=== PATIENT | male | born 1960 | race Caucasian/White ===

== ENCOUNTER 2019-07-29 09:05 | Emergency (ER) | payer OTHER, SELFPAY ==
--- NOTE | 2019-07-29 09:24 | ED_ITS ---
Entered by Conner Brunson, acting as scribe for HPI - General Adult General: Chief complaint: General Medical Stated complaint: HIGH BP SOB Time Seen by Provider: 07/29/19 09:30 History of Present Illness: HPI narrative: 58 yo male presents with hy pertension and shortness of breath. Pt states that last night he started having chills and nausea. Pt states that he went to [facility], they sent him here. Pt states that his face is tingling. Pt states that he has had a cough for a week. MD complaint: hypertension and shortness of breath. Associated symptoms: Reports diaphoresis, dyspnea and nausea; Deny chest pain, malaise, rash or vomiting Review of Systems Const: Reports: chills, fatigue and diaphoresis; Denies: fever, body aches, change in appetite or malaise ENMT: Denies: throat pain, ear pain, nasal discharge or nasal congestion Card: Denies: chest pain, edema, shortness of breath on exertion or shortness of breath when lying down Resp: Reports: shortness of breath and non-productive cough; Denies: productive cough GI: Reports: nausea; Denies: abdominal pain, vomiting, vomiting blood, coffee grounds in vomit, diarrhea, constipation, bloating, blood in stool or black tarry stool : Denies: flank pain, painful urination, urinary frequency or urinary urgency Skin/Breast: Denies: rash or itching PFSH ED PFSH: Statuses (acute, chronic, etc) shown below reflect problem list status as previously entered and may not be historically accurate Medical History Diabetes (Acute) Prostate disease (Acute) Social History Smoking and tobacco status: never smoked Physical Exam Const: COMMON NORMALS: no apparent distress GENERAL APPEARANCE: cooperative and comfortable ORIENTATION/CONSCIOUSNESS: Yes awake, Yes oriented to person, Yes oriented to place and Yes oriented to time HENMT: COMMON NORMALS: normocephalic, head/scalp atraumatic, hearing grossly normal bilaterally, external ears normal, EAC's normal, TM's normal bilaterally, nasal mucous membranes and turbinates normal, moist oral mucous membranes and oropharynx normal HEAD & SCALP: normocephalic and atraumatic NOSE: nasal mucous membranes and turbinates normal EXTERNAL EAR: Yes external ears normal EXTERNAL AUDITORY CANAL: EAC's normal TYMPANIC MEMBRANE: TM's normal bilaterally Eye: COMMON NORMALS: PERRL, EOMs intact bilaterally, conjunctivae normal and no scleral icterus CONJUNCTIVA: Yes conjunctivae normal PUPIL: Yes PERRL Neck/C-Spine: COMMON NORMALS: full ROM, no lymphadenopathy, supple and no JVD Lymph: LYMPHATIC: no lymphadenopathy noted and no lymphedema noted Resp: COMMON NORMALS: normal respiratory effort, no retractions, no use of accessory muscles and clear to auscultation bilaterally AUSCULTATION: clear to auscultation bilaterally Cardio: COMMON NORMALS: no JVD, regular rate, regular rhythm and no murmurs RATE: regular rate RHYTHM: regular rhythm GI: COMMON NORMALS: soft to palpation and no hepatosplenomegaly AUSCULTA TION: Yes normoactive bowel sounds PALPATION: Yes soft, No tender, No guarding and Yes no hepatosplenomegaly Extremity: COMMON NORMALS: normal to inspection, normal capillary refill, no c lubbing, cyanosis or edema, no calf tenderness and no pedal edema Neuro: SENSORIUM/ORIENTATION: Yes oriented to person, Yes oriented to place and Yes oriented to time Skin: COMMON NORMALS: no rashes or lesions noted GENERAL SKIN EXAM: no rashes or lesions noted Course ED course: Patient initially was hyperventilating when he came in. He does indeed have significant blood pressure elevation and a history of diabetes mellitus. On his first vital signs O2 sat is listed as 24. 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 His blood pressure did improve while he was here his symptoms have completely resolved since, coming to the emergency room. We will add lisinopril 10 mg daily and have him follow-up with his primary care doctor in the next few days. Turn if has any worsening or changes symptoms Vital Signs: Vital signs: Vital Signs Temperature 97.9 F 07/29/19 09:30 Pulse Rate 90 07/29/19 11:17 Respiratory Rate 20 H 07/29/19 11:17 Blood Pressure 170/99 07/29/19 11:17 Pulse Oximetry 97 07/29/19 11:17 [facility] - General Adult Lab Data: Labs: Lab Results 07/29/19 07/29/19 07/29/19 Range/Units 09:40 09:40 09:40 WBC 8.5 (4.0-10.0) 10^3/ uL RBC 5.20 (4.1-5.3) 10^6/u L Hgb 15.4 (11.7-16.6) g/dL Hct 45.3 (42.0-52.0) % MCV 87.1 (80-94) fL MCH 29.6 (28.0-34.0) pg MCHC 34.0 (30.0-36.0) g/dL RDW 13.2 (12.1-15.1) % Plt Count 244 (130-400) 10^3/c mm MPV 9.8 (7.4-10.4) fL Neut % (Auto) 60.0 % Lymph % (Auto) 29.0 % [place] % (Auto) 9.2 % Eos % (Auto) 0.8 % Baso % (Auto) 0.4 % Neut # (Auto) 5.1 (1.8-7.7) 10^3/u L Lymph # (Auto) 2.5 (0.8-4.8) 10^3/u L [place] # (Auto) 0.8 (0.2-0.9) 10^3/u L Eos # (Auto) 0.1 (0.0-0.8) 10^3/u L Baso # (Auto) 0.0 (0.0-0.1) 10^3/u L Nucleated RBC % (a uto) 0 % Nucleated RBCs # 0.0 /100WBC Specimen Type Sample Site ABG pH (7.35-7.45) ABG pCO2 (35-45) mmHg ABG pO2 (80.0-100.0) mmH g ABG HCO3 (22-26) mmol/L ABG O2 Saturation ABG Base Excess (-2.0-2.0) mmol/ L Vern Test A-a O2 Gradient (5-10) mmHg Hematocrit (42-52) % Hgb O2 Saturation (95-100) % Carboxyhemoglobin (0.4-20.1) %THgb Methemoglobin (0.4-1.5) % Total Hemoglobin (14-18) g/dL Ionized Calcium (1.1-1.4) mmol/L O2 Delivery Device FiO2 % Direct Customer Service Representative ID Sodium 138 (136-145) mmol/L Potassium 3.7 (3.5-5.1) mmol/L Chloride 97 L (98-107) mmol/L Carbon Dioxide 24 (22-29) mmol/L Anion Gap 20.7 H (5-19) BUN 16 (6-20) mg/dL Creatinine 1.1 (0.7-1.2) mg/dL GFR Calculation 68.5 L (90-130) mL/min Glucose 174 H (74-109) mg/dL Calcium 9.9 (8.5-10.5) mg/dL Total Bilirubin 0.4 (0.15-1.2) mg/dL AST 24 (0-40) U/L ALT 42 H (0-41) U/L Alkaline Phosphata se 87 (40-130) IU/L Troponin T Baselin e 15 (0-15) ng/mL Total Protein 7.9 (6.6-8.7) g/dL Albumin 4.9 (3.5-5.2) g/dL Globulin 3.0 (1.3-4.6) g/dL Urine Color (Yellow) Urine Appearance (CLEAR) Urine pH (5-7) Ur Specific Gravit y (1.005-1.030) Urine Protein (Negative) Urine Glucose (UA) (Normal) Urine Ketones (Negative) Urine Occult Blood (Negative) Urine Nitrate (Negative) Urine Bilirubin (NEGATIVE) Prot Sulfosalicyli c Acd Urine Urobilinogen (Negative) mg/dL Ur Leukocyte Priti ase (Negative) Influenza Type A A g (Negative) POC Influenza B Ag (Negative) 07/29/19 07/29/19 07/29/19 Range/Units 09:49 09:55 10:02 WBC (4.0-10.0) 10^3/ uL RBC (4.1-5.3) 10^6/u L Hgb (11.7-16.6) g/dL Hct (42.0-52.0) % MCV (80-94) fL MCH (28.0-34.0) pg MCHC (30.0-36.0) g/dL RDW (12.1-15.1) % Plt Count (130-400) 10^3/c mm MPV (7.4-10.4) fL Neut % (Auto) % Lymph % (Auto) % [place] % (Auto) % Eos % (Auto) % Baso % (Auto) % Neut # (Auto) (1.8-7.7) 10^3/u L Lymph # (Auto) (0.8-4.8) 10^3/u L [place] # (Auto) (0.2-0.9) 10^3/u L Eos # (Auto) (0.0-0.8) 10^3/u L Baso # (Auto) (0.0-0.1) 10^3/u L Nucleated RBC % (a uto) % Nucleated RBCs # /100WBC Specimen Type Arterial Sample Site Radial, left ABG pH 7.59 H* (7.35-7.45) ABG pCO2 21.7 L (35-45) mmHg ABG pO2 90.2 (80.0-100.0) mmH g ABG HCO3 20.8 L (22-26) mmol/L ABG O2 Saturation 98.6 ABG Base Excess 1.3 (-2.0-2.0) mmol/ L Vern Test Pos A-a O2 Gradient 28.3 H (5-10) mmHg Hematocrit 46.5 (42-52) % Hgb O2 Saturation 97.5 (95-100) % Carboxyhemoglobin 0.8 (0.4-20.1) %THgb Methemoglobin 0.3 L (0.4-1.5) % Total Hemoglobin 15.2 (14-18) g/dL Ionized Calcium 1.1 (1.1-1.4) mmol/L O2 Delivery Device Room air FiO2 21.0 % Direct Customer Service Representative ID glc Sodium 140.0 (136-145) mmol/L Potassium 3.4 L (3.5-5.1) mmol/L Chloride (98-107) mmol/L Carbon Dioxide (22-29) mmol/L Anion Gap (5-19) BUN (6-20) mg/dL Creatinine (0.7-1.2) mg/dL GFR Calculation (90-130) mL/min Glucose 160.0 H (74-109) mg/dL Calcium (8.5-10.5) mg/dL Total Bilirubin (0.15-1.2) mg/dL AST (0-40) U/L ALT (0-41) U/L Alkaline Phosphata se (40-130) IU/L Troponin T Baselin e (0-15) ng/mL Total Protein (6.6-8.7) g/dL Albumin (3.5-5.2) g/dL Globulin (1.3-4.6) g/dL Urine Color Yellow (Yellow) Urine Appearance Clear (CLEAR) Urine pH 8.5 H (5-7) Ur Specific Gravit y 1.010 (1.005-1.030) Urine Protein Neg (Negative) Urine Glucose (UA) Trace H (Normal) Urine Ketones Negative (Negative) Urine Occult Blood Neg (Negative) Urine Nitrate Negative (Negative) Urine Bilirubin Neg (NEGATIVE) Prot Sulfosalicyli c Acd Negative Urine Urobilinogen Norm (Negative) mg/dL Ur Leukocyte Priti ase Negative (Negative) Influenza Type A A g Negative (Negative) POC Influenza B Ag Negative (Negative) Discharge Plan Discharge Patient Disposition: Home, Self-Care Clinical Impression: Acute hyperventilation, Diabetes, Benign essential HTN Condition: Stable Prescriptions: New lisinopril 10 mg tablet 10 mg PO DAILY Qty: 30 RF: 0 No Action trazodone 50 mg tablet 50 mg PO BEDTIME PRN (Reason: Insomnia) RF: 0 metformin 500 mg tablet extended release 24 hr 1,000 mg PO BID RF: 0 finasteride 5 mg tablet 5 mg PO DAILY RF: 0 Discharge Orders: Discharge Order (Routine); Ordered 07/29/19 Ordered By: Cory Patel Referrals: Liam Mendoza DO [Family Provider] - Discharge Diet: Usual diet Discharge Activity: Increase activity as tolerated Activity Restrictions/Additional Instructions: Start antihypertensive as above. Follow-up with Dr. Mendoza tomorrow as scheduled. If you have any further problems return to the emergency room. 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
[2019-07-29 09:30] VITALS: BP 174/117; PULSE 109; RESP 22; TEMP 36.6; O2SAT 24; BMI 31.1
--- NOTE | 2019-07-29 09:36 | XRR_ITS ---
PROCEDURE INFORMATION: Exam: XR Chest, 1 View Exam date and time: 07/29/2019 9:37 AM Age: 58 years old Clinical indication: Cough TECHNIQUE: Imaging protocol: XR of the chest Views: 1 view. COMPARISON: No relevant prior studies available. FINDINGS: Lungs: COPD and interstitial prominence. Pleural space: No pleural effusion. Heart/Mediastinum: Epicardial fat accentuates the cardiac silhouette. Bones/joints: Degenerative change. XR/XR chest 1V portable [id number] IMPRESSION: COPD and interstitial prominence.
--- NOTE | 2019-07-29 09:36 | ECG_ITS ---
Measurements Intervals [place] Rate: 76 P: 5 PA: 152 QRS: -3 QRSD: 82 T: -4 QT: 383 QTc: 431 SINUS RHYTHM VOLTAGE CRITERIA FOR LVH [MEETS CRITERIA IN ONE OF: R(aVL), S(V1), R(V5), R(V (V5/V6)+S(V1)] No previous ECG available for comparison Electronically Signed On 07-29-2019 20:59:47 EXECUTIVE SALES MANAGER by Herman Joyner M.D. [email or web address]
[2019-07-29 09:45] VITALS: O2SAT 100
[2019-07-29] MEDS: sodium chloride 0.9% 1,000 ML 999 ML IV (09:52)
[2019-07-29 09:58] LABS: Basophils % 0.4 %; Eosinophils # 0.1 10^3/uL (0.0-0.8); Eosinophils % 0.8 %; Hematocrit 45.3 % (42.0-52.0); Hemoglobin 15.4 g/dL (11.7-16.6); Lymphocytes # 2.5 10^3/uL (0.8-4.8); Mean Corpuscular Hemoglobin 29.6 pg (28.0-34.0); Mean Corpuscular Volume 87.1 fL (80-94); Mean Platelet Volume 9.8 fL (7.4-10.4); Monocytes # 0.8 10^3/uL (0.2-0.9); Monocytes % 9.2 %; Neutrophils # 5.1 10^3/uL (1.8-7.7); Nucleated Red Blood Cells % 0 %; Platelet Count 244 10^3/cmm (130-400); Red Cell Distribution Width 13.2 % (12.1-15.1); White Blood Count 8.5 10^3/uL (4.0-10.0)
[2019-07-29 10:00] LABS: Add Urine Microscopic? NO
[2019-07-29 10:10] LABS: Alanine Aminotransferase 42 U/L (0-41); Albumin Level 4.9 g/dL (3.5-5.2); Alkaline Phosphatase 87 IU/L (40-130); Anion Gap 20.7 (5-19); Aspartate Amino Transferase 24 U/L (0-40); Blood Urea Nitrogen 16 mg/dL (6-20); Calcium 9.9 mg/dL (8.5-10.5); Carbon Dioxide 24 mmol/L (22-29); Chloride 97 mmol/L (98-107); Glomerular Filtration Rate 68.5 mL/min (90-130); Glucose 174 mg/dL (74-109); Potassium 3.7 mmol/L (3.5-5.1); Sodium 138 mmol/L (136-145); Total Bilirubin 0.4 mg/dL (0.15-1.2); Total Protein 7.9 g/dL (6.6-8.7)
[2019-07-29 10:10] LABS: Bilirubin Urine Neg (NEGATIVE); Blood Urine Neg (Negative); Glucose Urine UA Trace (Normal); Ketones Urine Negative (Negative); Leukocyte Esterase Urine Negative (Negative); Nitrate Urine Negative (Negative); Protein Urine Neg (Negative); Sulfosalicylic Acid Urine Negative; Urine Appearance Clear (CLEAR); Urine Color Yellow (Yellow); Urobilinogen Urine Norm (Negative); pH Urine 8.5 (5-7)
[2019-07-29 10:13] LABS: ABG PCO2 21.7 mmHg (35-45); Alveolar-Arterial Oxygen Gradi 28.3 mmHg (5-10); Arterial Blood Gas Hematocrit 46.5 % (42-52); Base Excess ABG 1.3 mmol/L (-2.0-2.0); Blood Gas Allen Test Pos; Blood Gas Operator Identificat glc; Blood Gas Sample Site Radial, left; Blood Gas Sample Type Arterial; Carboxyhemoglobin 0.8 %THgb (0.4-20.1); HCO3 ABG 20.8 mmol/L (22-26); HGB O2 Sat 97.5 % (95-100); Ionized Calcium Level - ABG 1.1 mmol/L (1.1-1.4); Methemoglobin 0.3 % (0.4-1.5); Oxygen Device ROOM AIR; Oxygen Saturation ABG 98.6; PO2 ABG 90.2 mmHg (80.0-100.0); Potassium Level - ABG 3.4 mmol/L (3.5-5.0); Total Hemoglobin 15.2 g/dL (14-18)
[2019-07-29 10:14] LABS: ABG PH Result 7.59 (7.35-7.45)
[2019-07-29 10:15] LABS: Troponin(5th) Baseline 15 ng/mL (0-15)
[2019-07-29 10:25] LABS: Influenza A by IFA Negative (Negative); Influenza B by IFA Negative (Negative)
[2019-07-29 10:30] VITALS: BP 169/97; PULSE 66; RESP 19; O2SAT 99
[2019-07-29 11:17] VITALS: BP 170/99; PULSE 90; RESP 20; O2SAT 97
== END 2019-07-29 11:19 | disposition home or self-care (01) ==
PROVIDERS: Emergency Provider Family Medicine; Family Provider Internal Medicine
DX: I10 Essential (primary) hypertension (principal); R06.4 Hyperventilation; E11.9 Type 2 diabetes mellitus without complications; Z79.84 Long term (current) use of oral hypoglycemic drugs
CPT/HCPCS: 36600; 71045; 80051; 80053; 81003; 82810; 83986; 84484; 85025; 87804; 93005; 96360; 99283; A9270; J7030

== ENCOUNTER → 2022-07-21 10:11 | Outpatient (BNVA) | payer OTHER, SELFPAY | PROVIDERS: Visit Provider Emergency Medicine | DX: S99.919A Unspecified injury of unspecified ankle, initial encounter (principal); W18.40XA Slipping, tripping and stumbling without falling, unspecified, initial encounter; M79.89 Other specified soft tissue disorders | CPT/HCPCS: 73610 ==

== ENCOUNTER → 2022-09-19 09:55 | Outpatient (BNVA) | payer OTHER, SELFPAY | PROVIDERS: PCP Family Medicine; Visit Provider Family Medicine | DX: E11.9 Type 2 diabetes mellitus without complications (principal); R25.1 Tremor, unspecified | CPT/HCPCS: 82962 ==

== ENCOUNTER → 2023-10-26 09:58 | Outpatient (BNVA) | payer OTHER, SELFPAY | PROVIDERS: PCP Family Medicine; Visit Provider Nurse Practitioner Family | DX: R39.9 Unspecified symptoms and signs involving the genitourinary system (principal); E11.9 Type 2 diabetes mellitus without complications | CPT/HCPCS: 81000; 82962 ==

== ENCOUNTER → 2023-11-01 10:23 | Outpatient (BNVA) | payer OTHER, SELFPAY | PROVIDERS: PCP Family Medicine; Visit Provider Family Medicine | DX: E11.9 Type 2 diabetes mellitus without complications (principal); I10 Essential (primary) hypertension; Z12.5 Encounter for screening for malignant neoplasm of prostate; E83.42 Hypomagnesemia | CPT/HCPCS: 80048; 80053; 80061; 81003; 82043; 82306; 82607; 82746; 83036; 83735; 84443; 85025; G0103 ==

== ENCOUNTER 2023-11-02 09:15 | Outpatient (CLI) | payer OTHER, SELFPAY ==
--- NOTE | 2023-11-02 09:22 | XR_ITS ---
WS: [id number] Chest 2 views, 11/02/2023 Clinical Data: Chest congestion Comparison: Portable chest, 07/29/2019 Findings: No nodules, masses or effusions are seen. The heart is normal. The pulmonary vascularity is not increased. No pneumonia or pneumothorax is seen. The diaphragms are flattened. The aortic arch a nd descending thoracic aorta show minimal calcification and tortuosity. XR/XR chest 2V* [id number] Impression: Atherosclerosis and hyperinflation.
== END 2023-11-02 09:16 | disposition home or self-care (01) ==
LOC: LAB 09:19
PROVIDERS: PCP Family Medicine; Visit Provider Family Medicine
DX: R09.89 Other specified symptoms and signs involving the circulatory and respiratory systems (principal); I70.0 Atherosclerosis of aorta
CPT/HCPCS: 71046

== ENCOUNTER 2024-01-01 00:43 | Emergency (ER) | payer OTHER, SELFPAY ==
[2024-01-01 00:46] VITALS: BP 142/93; PULSE 76; RESP 18; TEMP 36.6; O2SAT 100; BMI 29.8
[2024-01-01 00:51] VITALS: BP 142/93; PULSE 82; RESP 18; O2SAT 100
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
--- NOTE | 2024-01-01 01:02 | XRR_ITS ---
PROCEDURE INFORMATION: Exam: XR Chest Exam date and time: 01/01/2024 1:11 AM Age: 63 years old Clinical indication: Shortness of breath; Patient HX: C/O SOB. TECHNIQUE: Imaging protocol: Radiologic exam of the chest. Views: 1 view. COMPARISON: CR XR chest 2V* [id number] 11/02/2023 9:30 AM FINDINGS: Lungs: No consolidation. Pleural spaces: Unremarkable. No pleural effusion. No pneumothorax. Heart/Mediastinum: No cardiomegaly. Bones/joints: No acute fracture. XR/XR chest 1V portable [id number] IMPRESSION: No acute findings.
[2024-01-01] MEDS: iohexol 350 mg/mL 500 mL Btl (per mL) IV (01:24)
[2024-01-01 02:03] LABS: Basophils % 0.3 %; Eosinophils % 0.3 %; Hematocrit 40.3 % (37-53); Lymphocytes # 1.2 10^3/uL (0.8-4.8); Lymphocytes % 16.9 %; Mean Corpuscular Hemoglobin 32.9 pg (27-33); Mean Corpuscular Volume 96.6 fl (82-101); Mean Platelet Volume 10.3 fL (7.4-10.4); Monocytes # 0.4 10^3/uL (0.2-0.9); Monocytes % 5.6 %; Neutrophils # 5.63 10^3/uL (1.8-7.7); Neutrophils % 76.5 %; Nucleated Red Blood Cells % 0 %; Platelet Count 129 10^3/cmm (157-399); Red Blood Count 4.17 10^6/uL (3.85-5.65); Red Cell Distribution Width 13.5 % (12.1-15.1); White Blood Count 7.35 10^3/uL (3.29-11.43)
[2024-01-01 02:23] LABS: Alanine Aminotransferase 56 U/L (0-41); Alkaline Phosphatase 73 U/L (40-130); Aspartate Amino Transferase 81 U/L (0-40); Blood Urea Nitrogen 14 mg/dL (8-23); Calcium 8.8 mg/dL (8.5-10.5); Carbon Dioxide 19 mmol/L (22-29); Chloride 100 mmol/L (98-107); Creatinine Clr Calc Pharmacy 114.1003; Globulin 2.8 g/dL (1.3-4.6); Glomerular Filtration Rate 97.3 mL/min (90-130); Glucose 223 mg/dL (65-115); Osmolality Calculated 287 mOsm/kg (285-295); Sodium 135 mmol/L (136-145); Total Bilirubin 0.5 mg/dL (0.15-1.2); Total Protein 6.8 g/dL (6.6-8.7)
[2024-01-01 02:24] VITALS: BP 123/85; PULSE 75; RESP 18; O2SAT 100
[2024-01-01] MEDS: ondansetron 2 mg/ML SDV 2 mL 4 MG IVP (02:25)
[2024-01-01 02:26] VITALS: RESP 16; O2SAT 100
[2024-01-01] MEDS: morphine 4 mg/mL SDV 1 mL IVP (02:26)
[2024-01-01 02:51] LABS: Add Urine Culture? No; Add Urine Microscopic? YES; Bacteria Urine TRACE /hpf; Bilirubin Urine Neg (Negative); Blood Urine Neg (Negative); Glucose Urine UA 1+ (Normal); Ketones Urine 1+ (Negative); Leukocyte Esterase Urine Negative (Negative); Mucus Urine 1+ /hpf; Nitrate Urine Negative (Negative); Protein Urine 1+ (Negative); Specific Gravity, Urine 1.005 (1.005-1.030); Urine Appearance Clear (CLEAR); Urine Color Yellow (Yellow); Urobilinogen Urine Neg (Negative); pH Urine 5 (5-7)
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
[2024-01-01 03:14] VITALS: BP 135/84; PULSE 80; RESP 16; O2SAT 100
[2024-01-01 03:29] VITALS: RESP 16
[2024-01-01] MEDS: oxyCODONE-APAP 5-325 mg Tablet 2 TAB PO (03:29)
== END 2024-01-01 03:38 | disposition home or self-care (01) ==
PROVIDERS: Emergency Provider Emergency Medicine; PCP Family Medicine
DX: S32.028A Other fracture of second lumbar vertebra, initial encounter for closed fracture (principal); S32.038A Other fracture of third lumbar vertebra, initial encounter for closed fracture; S32.048A Other fracture of fourth lumbar vertebra, initial encounter for closed fracture; S32.058A Other fracture of fifth lumbar vertebra, initial encounter for closed fracture; S22.42XA Multiple fractures of ribs, left side, initial encounter for closed fracture; E11.9 Type 2 diabetes mellitus without complications; W18.39XA Other fall on same level, initial encounter; Y92.821 Forest as the place of occurrence of the external cause
CPT/HCPCS: 71045; 74177; 80053; 81001; 85025; 96374; 96375; 99285; J2270; J2405; Q9967

== ENCOUNTER 2024-10-04 09:03 | Emergency (ER) | payer OTHER, SELFPAY ==
[2024-10-04] VITALS (19 sets, daily range): BP systolic 113–180; BP diastolic 78–121; PULSE 105–142; RESP 24–43; TEMP 36.3; O2SAT 88–99; BMI 31.1
--- NOTE | 2024-10-04 09:28 | W.ED.AMS ---
HPI - Altered Mental Status General: Chief Complaint: Altered Mental Status Stated Complaint: gen illness - ams Time Seen by Provider: 10/04/24 09:07 History of Present Illness: Patient is a 63-year-old male who presents to the ER today via EMS for altered mental status and not doing well since this a.m. Patient's daughter is in the room with him and reports that yesterday they went to visit her mother, his in [place] who is in the hospital for liver failure and on the way there he was shaking and so he took a couple shots of alcohol. Patient has a significant past medical history of alcohol abuse and if he does not drink at least every 12 hours he starts to have the shakes and withdrawal. She reports he took a couple shots on the way there and then when they got home he finished a sleeve which would equal approximately 20 shots for the day. Patient has not had any alcohol since last night. Patient reports she got up this morning and noticed that there was feces down the hallway at home. She found her father in his room trying to put a towel on his legs thinking they were pants. She reports he was completely out of his mind and was shaking severely so she called EMS. Patient does not give much medical history due to the altered mental status but he is oriented to name. He appears to have a history of hypertension in addition to alcohol abuse and type 2 diabetes. Patient's daughter also reports he does not take his medications like he supposed to. The only diabetic med she knows he is on is metformin however she admits he does not take it regularly. He also does not eat regularly and reports they have tried to get him to eat but he just will not eat. Yesterday she does not recall him eating. She reports he does have an appointment to establish care with a PCP in the area and may but has not been seen by doctor in quite some time. Patient declines any chest pain or shortness of breath however does not give many answers to questions. Onset (ago): hour(s) Associated symptoms: Reports delusions (thought a towel was his pants; defecated in hallway at home) Related Data Home Medications ?Medication ?Instructions ?Recorded ?Confirmed No Known Home Medications 10/04/24 10/04/24 Allergies Allergy/AdvReac Type Severity Reaction Status Date / Time No Known Allergies Allergy Verified 04/11/25 09:22 Review of Systems General: Reports: Other (altered, daughter answering most questions) Const: Reports: change in appetite and other (shaking) Card: Denies: chest pain, palpitations, edema or syncope Resp: Denies: dyspnea, wheezing or chest congestion GI: Reports: diarrhea; Denies: abdominal pain, nausea, vomiting or heartburn : Denies: dysuria Musc: Denies: back pain, extremity pain or extremity swelling Skin/Breast: Denies: rash Neuro: Reports: other (severe shaking; confusion); Denies: headache(s) Psych: Reports: other (long hx of alcohol abuse) [facility] ED PFSH: Medical History (Updated 10/04/24 @ 13:59 by Macey Alejo MD) Prostate disease Diabetes Family History Other Cancer Social History Smoking and tobacco/nicotine status: never used tobacco/nicotine Second hand smoke exposure: No Alcohol intake: never Substance/Drug Use: never Physical Exam Const: GENERAL APPEARANCE: disheveled; not well kempt (unkempt) OTHER: shaking and unable to lay still HENMT: COMMON NORMALS: normocephalic, atraumatic, Normal external nose present and dentition normal HEAD & SCALP: normocephalic and atraumatic NOSE: Normal external nose present OTHER: post seizure pt is noted to have a small tongue laceration to the L side of the anterior tongue; bleeding controlled. Eye: COMMON NORMALS: conjunctivae normal CONJUNCTIVA: Yes conjunctivae normal Neck/C-Spine: COMMON NORMALS: full ROM and no lymphadenopathy Lymph: LYMPHATIC: no lymphadenopathy noted Chest: CHEST: Yes Ecchymosis present (R lateral chest; appears old) Resp: COMMON NORMALS: normal respiratory effort, No retractions and clear to auscultation bilaterally AUSCULTATION: clear to auscultation bilaterally Cardio: COMMON NORMALS: regular rhythm and No murmurs present (Cardio); negative for regular rate (tachycardic) RATE: abnormal rate (tachycardic) RHYTHM: regular rhythm GI: COMMON NORMALS: Normal to inspection, nondistended, normoactive bowel sounds present, Soft to palpation and non-tender PALPATION: Yes Soft to palpation OTHER: min Back/Pelvis: GENERAL BACK: No ecchymosis Extremity: COMMON NORMALS: normal to inspection, full ROM and no clubbing, cyanosis or edema Neuro: SPEECH: abnormal speech OTHER: pt shaking and difficult to understand due to the intense shaking; did follow commands prior to seizure in the ER Psych: APPEARANCE: No well kempt (unkempt) THOUGHT CONTENT: Yes delusions (thought a towel was his pants; defecated in hallway at home) Skin: NARRATIVE SKIN EXAM: other than bruise noted above; no rashes Course ED course: Patient presented to the ER via EMS for altered mental status which daughter found him this morning much different than his baseline. En route he was given thiamine and arrived to the ER very shaky and did not give a good medical history. What is known was from the daughter and was that he drinks approximately 20+ hard liquor shots daily with his last drink being last night. Patient does acknowledge that he starts drinking early in the morning every day. He does not have a local PCP so has not seen a doctor recently but does have a history of type 2 diabetes and does not take medications regularly. Daughter did find him with the feces down the hallway so unknown when that might have happened. Patient denies any abdominal pain. Shortly after arriving to the ER, a line was placed and the patient started seizing. The line was ripped out and IM Ativan was given. Patient did require some bagging and then an oral airway however quickly improved and returned to 95% on room air. He was tachypneic and postictal for approximately 30 minutes. I discussed patient with Dr. Alejo who is also involved in patient's care after the seizure. We also spoke with infection control manager and will work on ruling out any underlying causes for seizure and altered mental status. Patient does have a significantly elevated lactic acid which was drawn and route to the hospital prior to the seizure in the ER. Reevaluation(s): Reevaluation #1: 45 min post seizure pt is resting better and vitals are still stable. Waiting on imaging and more labwork at this time. Reevaluation #2: Pt in CT at this time. Lactic slightly more elevated. Sodium significantly low which may be source of seizure. Potassium slightly low, serum ketones neg. Reevaluation #3: I spoke with Dr. Vance who recommended consult Dr. Harvey. Dr. Harvey felt like patient might need interventional radiology for possible distended gallbladder however I spoke with Dr. Arreaga in radiology and she feels like an NG tube Additional Reevaluation(s): Transfer to [facility] by [facility]; accept physician Dr. Sanchez. Dr. Alejo took over patient care at about 1330 as pt was decompensating and required intubation; refer to Dr. Alejo's note Vital Signs: Vital signs: Vital Signs Temperature 97.4 F L 10/04/24 09:06 Pulse Rate 107 H 10/04/24 09:06 Respiratory Rate 40 H 10/04/24 13:53 Blood Pressure 113/88 10/04/24 09:06 Pulse Oximetry 97 10/04/24 09:06 Oxygen Delivery Me thod Room Air 10/04/24 09:06 Fraction of Inspir ed Oxygen 100 10/04/24 13:53 MDM - Altered Mental Status Medical Decision Making Patient presented to the ER via EMS with what was thought to be alcohol withdrawal despite the fact the patient still had a drink last night. Upon arrival patient did end up having a seizure although based on labs and course of events that happened in the ER I suspect patient had had a seizure prior to arrival. Post seizure in the ER, patient did end up with a tongue laceration in the frontal aspect of the left side of the tongue. Bleeding was minimal but there was moderate swelling. Patient initially was maintaining his own airway postseizure however continued to decompensate throughout the ER stay and ended up intubated. Dr. Alejo did end up taking over care. We attempted to keep patient here however as his condition continued to decline, we made the decision to transfer. Dr. Vance was consulted and involved in medical decision making and felt it was an appropriate transfer. Daughter was also involved in care while here and was notified of transfer and was in agreement. Lab Data 10/04/24 09:11 10/04/24 09:11 Radiology Impressions Chest X-Ray 10/04/24 10:07 IMPRESSION: 1. Limited inspiratory effort. No acute process is suspected. Chest/Abdomen/Pelvis CT 10/04/24 10:19 IMPRESSION: Moderately distended gallbladder containing fluid and gas with possible mass or narrowing near the EG junction. Consider endoscopy. IMPRESSION: 1. Fluid distended stomach, consider gastric outlet obstruction. 2. Hepatomegaly with hepatic steatosis. COMMENTS: Consistent with the [employer]'s Incidental Findings Committee white paper (J Am Mamadou Radiol 2018): Any incidental renal lesion less than 1 cm or classified as too small to characterize, or any incidental cystic renal lesion characterized as simple-appearing, is likely benign. No follow-up imaging is recommended for these lesions per consensus recommendations based on imaging criteria. Head CT 10/04/24 10:19 IMPRESSION: No acute intracranial abnormality. Laboratory Results WBC 9.28 10^3/uL (3.29-11.43) 10/04/24 09:11 RBC 3.92 10^6/uL (3.85-5.65) 10/04/24 09:11 Hgb 13.10 g/dL (11.27-16.99) 10/04/24 09:11 Hct 37.6 % (37-53) 10/04/24 09:11 MCV 95.9 fl (82-101) 10/04/24 09:11 MCH 33.4 pg (27-33) H 10/04/24 09:11 MCHC 34.8 g/dL (30-55) 10/04/24 09:11 RDW 13.2 % (12.1-15.1) 10/04/24 09:11 Plt Count 118 10^3/cmm (157-399) L 10/04/24 09:11 MPV 10.3 fL (7.4-10.4) 10/04/24 09:11 Neut % (Auto) 70.3 % 10/04/24 09:11 Lymph % (Auto) 17.1 % 10/04/24 09:11 Lamb % (Auto) 9.2 % 10/04/24 09:11 Eos % (Auto) 2.4 % 10/04/24 09:11 Baso % (Auto) 0.2 % 10/04/24 09:11 Neut # (Auto) 6.53 10^3/uL (1.8-7.7) 10/04/24 09:11 Lymph # (Auto) 1.6 10^3/uL (0.8-4.8) 10/04/24 09:11 Lamb # (Auto) 0.9 10^3/uL (0.2-0.9) 10/04/24 09:11 Eos # (Auto) 0.2 10^3/uL (0.0-0.8) 10/04/24 09:11 Baso # (Auto) 0.0 10^3/uL (0.0-0.1) 10/04/24 09:11 Nucleated RBC % (auto) 0 % 10/04/24 09:11 Nucleated RBCs # 0.0 /100WBC 10/04/24 09:11 PT 15.00 SECONDS (12.1-14.9) H 10/04/24 10:45 INR 1.10 (0.8-1.2) 10/04/24 10:45 Specimen Type Arterial 10/04/24 10:55 Sample Site Radial, right 10/04/24 10:55 ABG pH 7.19 (7.35-7.45) L 10/04/24 10:55 ABG pCO2 17.1 mmHg (35-45) L* 10/04/24 10:55 ABG pO2 88.8 mmHg (80.0-100.0) 10/04/24 10:55 ABG PO2/FiO2 Ratio 317 10/04/24 10:55 ABG HCO3 6.5 mmol/L (22-26) L 10/04/24 10:55 ABG O2 Saturation 94.1 10/04/24 09:45 ABG Base Excess -19.6 mmol/L (-2.0-2.0) L 10/04/24 10:55 Vern Test Pos 10/04/24 10:55 A-a O2 Gradient 2.6 mmHg (5-10) L 10/04/24 09:45 Hematocrit 39.4 % (42-52) L 10/04/24 10:55 Hgb O2 Saturation 92.9 % (95-100) L 10/04/24 09:45 Carboxyhemoglobin 1.4 %THgb (0.4-20.1) 10/04/24 09:45 Methemoglobin < 0.0 % (0.4-1.5) L 10/04/24 09:45 Total Hemoglobin 12.9 g/dL (14-18) L 10/04/24 09:45 Sodium 119.0 mmol/L (131-143) L 10/04/24 09:45 Potassium 3.2 mmol/L (3.5-5.0) L 10/04/24 09:45 Glucose 253.0 mg/dL (70-115) H 10/04/24 09:45 Ionized Calcium 1.2 mmol/L (1.1-1.4) 10/04/24 09:45 O2 Delivery Device Nc 10/04/24 10:55 O2 Liters/Min 2.0 % 10/04/24 10:55 FiO2 28.0 % 10/04/24 10:55 Slasher Tender Helper ID glc 10/04/24 10:55 Blood Gas Notified Time 91410/04/24 10:55 Sodium 122 mmol/L (136-145) L 10/04/24 09:11 Potassium 3.7 mmol/L (3.5-5.1) 10/04/24 09:11 Chloride 74 mmol/L (98-107) L 10/04/24 09:11 Carbon Dioxide 10 mmol/L (22-29) L 10/04/24 09:11 Anion Gap 41.7 (5-19) H 10/04/24 09:11 BUN 10 mg/dL (8-23) 10/04/24 09:11 Creatinine 0.7 mg/dL (0.7-1.2) 10/04/24 09:11 GFR Calculation 113.5 mL/min (90-130) 10/04/24 09:11 Glucose 260 mg/dL (65-115) H 10/04/24 09:11 POC Glucose 273 mg/dL (70-110) H 10/04/24 10:30 Calculated Osmolality 262 mOsm/kg (285-295) L 10/04/24 09:11 Lactic Acid 19.2 mmol/L (0.5-2.2) H* 10/04/24 10:45 Calcium 10.5 mg/dL (8.5-10.5) 10/04/24 09:11 Total Bilirubin 1.2 mg/dL (0.15-1.2) 10/04/24 09:11 GGT 761 U/L (8-61) H 10/04/24 09:11 AST 97 U/L (0-40) H 10/04/24 09:11 ALT 47 U/L (0-41) H 10/04/24 09:11 Alkaline Phosphatase 110 U/L (40-130) 10/04/24 09:11 Total Protein 7.7 g/dL (6.6-8.7) 10/04/24 09:11 Albumin 4.6 g/dL (3.5-5.2) 10/04/24 09:11 Globulin 3.1 g/dL (1.3-4.6) 10/04/24 09:11 Lipase 51 U/L (13-60) 10/04/24 09:11 Urine Color Yellow (Yellow) 10/04/24 10:05 Urine Appearance Clear (CLEAR) 10/04/24 10:05 Urine pH 5 (5-7) 10/04/24 10:05 Ur Specific [place] 1.020 (1.005-1.030) 10/04/24 10:05 Urine Protein 1+ (Negative) H 10/04/24 10:05 Urine Glucose (UA) 4+ (Normal) H 10/04/24 10:05 Urine Ketones 2+ (Negative) H 10/04/24 10:05 Urine Blood 3+ (Negative) H 10/04/24 10:05 Urine Nitrate Negative (Negative) 10/04/24 10:05 Urine Bilirubin Neg (Negative) 10/04/24 10:05 Urine Urobilinogen Norm mg/dL (Negative) 10/04/24 10:05 Ur Leukocyte Esterase Negative (Negative) 10/04/24 10:05 Urine RBC 0-2 /hpf (0-2) 10/04/24 10:05 Urine WBC 0-5 /hpf (0-5) 10/04/24 10:05 Ur Squamous Epith Cells 0-5 /hpf (0-5) 10/04/24 10:05 Amorphous Sediment Not Reportable 10/04/24 10:05 Urine Bacteria None seen /hpf (NONE) 10/04/24 10:05 Hyaline Casts 0-4 /lpf H 10/04/24 10:05 Urine Opiates Screen Negative ng/mL (Negative) 10/04/24 10:05 Ur Barbiturates Screen Negative ng/mL (Negative) 10/04/24 10:05 Ur Phencyclidine Scrn Negative ng/mL (Negative) 10/04/24 10:05 Ur Amphetamines Screen Negative ng/mL (Negative) 10/04/24 10:05 U Benzodiazepines Scrn Negative ng/mL (Negative) 10/04/24 10:05 Urine Cocaine Screen Negative ng/mL (Negative) 10/04/24 10:05 U Marijuana (THC) Screen Positive ng/mL (Negative) H 10/04/24 10:05 Ethyl Alcohol 130 mg/dL (0-10) H 10/04/24 09:11 Serum Ketones Negative (Negative) 10/04/24 10:45 All radiology interpretation(s) finalized by discharge Discharge Plan Discharge Patient Disposition: Xfer Short-Term Hosp Clinical Impression: Acute hyponatremia, Alcohol abuse, Seizure, Acute metabolic encephalopathy, Lactic acidosis Alcoholic intoxication Qualifiers: Complication of substance-induced condition: with delirium Qualified Code(s): F10.921 - Alcohol use, unspecified with intoxication delirium Condition: Stable Referrals: Tato Kay DO [Primary Care Provider] - Patient Instructions: Altered Mental Status (ED) Print Language: [place] Coding Level of Care Code ED Armorer Technician for Moustapha Douglas
[2024-10-04 09:40] LABS: Basophils % 0.2 %; Eosinophils # 0.2 10^3/uL (0.0-0.8); Eosinophils % 2.4 %; Hematocrit 37.6 % (37-53); Lymphocytes # 1.6 10^3/uL (0.8-4.8); Lymphocytes % 17.1 %; Mean Corpuscular HGB Conc 34.8 g/dL (30-55); Mean Corpuscular Hemoglobin 33.4 pg (27-33); Mean Corpuscular Volume 95.9 fl (82-101); Mean Platelet Volume 10.3 fL (7.4-10.4); Monocytes # 0.9 10^3/uL (0.2-0.9); Monocytes % 9.2 %; Neutrophils # 6.53 10^3/uL (1.8-7.7); Neutrophils % 70.3 %; Nucleated Red Blood Cells % 0 %; Platelet Count 118 10^3/cmm (157-399); Red Blood Count 3.92 10^6/uL (3.85-5.65); Red Cell Distribution Width 13.2 % (12.1-15.1); White Blood Count 9.28 10^3/uL (3.29-11.43)
[2024-10-04] MEDS: LORazepam 2 mg/mL INJ 1 mL IM (09:40)
[2024-10-04] MEDS: folic acid 1 MG, multivitamin inj 10 ML, thiamine 100 MG in sodium chloride 0.9% 1,000 ML 252.8 MG IV (09:46)
[2024-10-04] MEDS: sodium chloride 0.9% 1,000 ML 999 ML IV (09:52)
[2024-10-04 09:55] LABS: Alveolar-Arterial Oxygen Gradi 2.6 mmHg (5-10); Arterial Blood Gas Hematocrit 39.7 % (42-52); Base Excess ABG -24.2 mmol/L (-2.0-2.0); Blood Gas Sample Site Brachial, right; Blood Gas Sample Type Arterial; Carboxyhemoglobin 1.4 %THgb (0.4-20.1); HCO3 ABG 4.6 mmol/L (22-26); HGB O2 Sat 92.9 % (95-100); Ionized Calcium Level - ABG 1.2 mmol/L (1.1-1.4); Methemoglobin < 0.0 % (0.4-1.5); Oxygen Saturation ABG 94.1; Potassium Level - ABG 3.2 mmol/L (3.5-5.0); Total Hemoglobin 12.9 g/dL (14-18)
[2024-10-04 09:56] LABS: Blood Gas Operator Identificat MBB
[2024-10-04 09:57] LABS: ABG PCO2 16.8 mmHg (35-45); ABG PH Result 7.04 (7.35-7.45)
[2024-10-04] MEDS: LORazepam 2 mg/mL INJ 1 mL 1 MG IVP ×4 (10:00→12:54)
[2024-10-04 10:04] LABS: Alanine Aminotransferase 47 U/L (0-41); Albumin Level 4.6 g/dL (3.5-5.2); Alcohol Level 130 mg/dL (0-10); Alkaline Phosphatase 110 U/L (40-130); Aspartate Amino Transferase 97 U/L (0-40); Blood Urea Nitrogen 10 mg/dL (8-23); Calcium 10.5 mg/dL (8.5-10.5); Carbon Dioxide 10 mmol/L (22-29); Chloride 74 mmol/L (98-107); Creatinine Clr Calc Pharmacy 133.1363; Globulin 3.1 g/dL (1.3-4.6); Glomerular Filtration Rate 113.5 mL/min (90-130); Glucose 260 mg/dL (65-115); Lipase 51 U/L (13-60); Osmolality Calculated 262 mOsm/kg (285-295); Sodium 122 mmol/L (136-145); Total Bilirubin 1.2 mg/dL (0.15-1.2); Total Protein 7.7 g/dL (6.6-8.7)
[2024-10-04 10:05] LABS: Gamma Glutamyl Transferase 761 U/L (8-61)
[2024-10-04 10:07] LABS: Anion Gap 41.7 (5-19); Potassium 3.7 mmol/L (3.5-5.1)
--- NOTE | 2024-10-04 10:07 | XR_ITS ---
WS: [id number] Exam: XR chest 1V portable [id number] Date/Time of Exam: 10/04/2024 10:18 AM Reason For Exam: acidosis Comparison 01/01/2024. Lungs are fully expanded and clear. Limited inspiration noted. The cardiomediastinal silhouette is unremarkable for portable technique. No pleural effusions or pneumothorax. Bony structures are intact. XR/XR chest 1V portable [id number] IMPRESSION: 1. Limited inspiratory effort. No acute process is suspected.
[2024-10-04 10:16] LABS: Lactic Sepsis W/Reflex 17.7 mmol/L (0.5-2.2)
--- NOTE | 2024-10-04 10:19 | CTR_ITS ---
PROCEDURE INFORMATION: Exam: CT Head Without Contrast Exam date and time: 10/04/2024 11:43 AM Age: 63 years old Clinical indication: Other: Seizure; Additional info: Seizure PT here via EMS from home with C/O AMS that started sometime this morning. PT daughter states that PT has not been right since yesterday morning per EMS. EMS reports a HX of alcoholism and diabetes. PT bg 240 en route. EMS states that is alert to name. PT is a&o x 4 at baseline per EMS. PT was given 100 MG of thiamine. PT daughter states that yesterday PT had an episode of drinking, PT daughter states that she thought PT was going through withdrawls. ( end ) TECHNIQUE: Imaging protocol: Computed tomography of the head without contrast. Radiation optimization: All CT scans at this facility use at least one of these dose optimization techniques: automated exposure control; mA and/or kV adjustment per patient size (includes targeted exams where dose is matched to clinical indication); or iterative reconstruction. COMPARISON: No relevant prior studies available. RADIATION DOSE METRICS: Total DLP (mGy-cm): 1243.85 FINDINGS: Brain: Periventricular white matter lucency represents atherosclerotic encephalopathic changes. No abnormal blood, edema, mass effect, or midline shift. Cerebral ventricles: No ventriculomegaly. Ventricular prominence disproportionate to the degree of atrophy observed. Paranasal sinuses: Visualized sinuses are unremarkable. No fluid levels. Mastoid air cells: Visualized mastoid air cells are well aerated. Bones: Unremarkable. No acute fracture. Soft tissues: Unremarkable. CT/CT head wo con* [id number] IMPRESSION: No acute intracranial abnormality.
--- NOTE | 2024-10-04 10:19 | CTR_ITS ---
PROCEDURE INFORMATION: Exam: CTA Chest With Contrast Exam date and time: 10/04/2024 11:47 AM Age: 63 years old Clinical indication: Other: Hypoxemia, tachycardia; PT here via EMS from home with C/O AMS that started sometime this morning. PT daughter states that PT has not been right since yesterday morning per EMS. EMS reports a HX of alcoholism and diabetes. PT bg 240 en route. EMS states that is alert to name. PT is a&o x 4 at baseline per EMS. PT was given 100 MG of thiamine. PT daughter states that yesterday PT had an episode of drinking, PT daughter states that she thought PT was going through withdrawls. ( end ) TECHNIQUE: Imaging protocol: Computed tomographic angiography of the chest with contrast. Exam focused on the arteries. 3D rendering (Not supervised by radiologist): MIP and/or 3D reconstructed images were created by the technologist. Radiation optimization: All CT scans at this facility use at least one of these dose optimization techniques: automated exposure control; mA and/or kV adjustment per patient size (includes targeted exams where dose is matched to clinical indication); or iterative reconstruction. Contrast material: OMNI 350; Contrast volume: 100 ml; Contrast route: INTRAVENOUS (IV); COMPARISON: CR XR chest 1V portable [id number] 10/04/2024 10:17 AM RADIATION DOSE METRICS: Total DLP (mGy-cm): 1667.02 FINDINGS: Pulmonary arteries: Normal. No pulmonary emboli. Aorta: Unremarkable. No aortic aneurysm. No aortic dissection. Lungs: Mild dependent atelectasis. Pleural spaces: Trace bilateral pleural effusions. Heart: Unremarkable. No cardiomegaly. No pericardial effusion. Esophagus: The esophagus is moderately distended, the upper 1/2 with gas, the lower 1/2 with fluid. There is questionable narrowing or mass near the EG junction. Correlate clinically and consider endoscopy. Lymph nodes: Unremarkable. No enlarged lymph nodes. Diaphragm: Hiatal hernia. Bones/joints: Unremarkable. No acute fracture. Soft tissues: Unremarkable. PROCEDURE INFORMATION: Exam: CT Abdomen And Pelvis With Contrast Exam date and time: 10/04/2024 11:47 AM Age: 63 years old Clinical indication: Other: Hypoxemia, tachycardia; PT here via EMS from home with C/O AMS that started sometime this morning. PT daughter states that PT has not been right since yesterday morning per EMS. EMS reports a HX of alcoholism and diabetes. PT bg 240 en route. EMS states that is alert to name. PT is a&o x 4 at baseline per EMS. PT was given 100 MG of thiamine. PT daughter states that yesterday PT had an episode of drinking, PT daughter states that she thought PT was going through withdrawls. ( end ) TECHNIQUE: Imaging protocol: Computed tomography of the abdomen and pelvis with contrast. Radiation optimization: All CT scans at this facility use at least one of these dose optimization techniques: automated exposure control; mA and/or kV adjustment per patient size (includes targeted exams where dose is matched to clinical indication); or iterative reconstruction. Contrast material: OMNI 350; Contrast volume: 100 ml; Contrast route: INTRAVENOUS (IV); COMPARISON: CT abdomen pelvis w con* [id number] 01/01/2024 1:20 AM RADIATION DOSE METRICS: Total DLP (mGy-cm): 1667.02 FINDINGS: Liver: Severe hepatic steatosis. Gallbladder and biliary ducts: Normal. No calcified stones. No ductal dilation. Pancreas: Normal. No ductal dilation. Spleen: 26 cm splenomegaly. Adrenal glands: Normal. No mass. Kidneys and ureters: Numerous small renal cysts on each side. Stomach and bowel: The stomach is distended with fluid. Gastric outlet obstruction could be present. Diverticulosis without evidence of diverticulitis. Appendix: No evidence of appendicitis. Intraperitoneal space: Unremarkable. No free air. No significant fluid collection. Vasculature: Unremarkable. No abdominal aortic aneurysm. Lymph nodes: Unremarkable. No enlarged lymph nodes. Urinary bladder: Unremarkable as visualized. Reproductive: Unremarkable as visualized. Bones/joints: Unremarkable. No acute fracture. Soft tissues: Unremarkable. CT/CT angio chest w abd pel w con IMPRESSION: Moderately distended gallbladder containing fluid and gas with possible mass or narrowing near the EG junction. Consider endoscopy. IMPRESSION: 1. Fluid distended stomach, consider gastric outlet obstruction. 2. Hepatomegaly with hepatic steatosis. COMMENTS: Consistent with the [employer]'s Incidental Findings Committee white paper (J Am Mamadou Radiol 2018): Any incidental renal lesion less than 1 cm or classified as too small to characterize, or any incidental cystic renal lesion characterized as simple-appearing, is likely benign. No follow-up imaging is recommended for these lesions per consensus recommendations based on imaging criteria.
[2024-10-04 10:21] LABS: Bacteria Urine None Seen /hpf; Hyaline Casts Urine 0-4 /lpf; RBC Urine 0-2 /hpf (0-2); Squamous Epithelial Cell Urine 0-5 /hpf (0-5); WBC Urine 0-5 /hpf (0-5)
[2024-10-04 10:22] LABS: Add Urine Culture? No; Add Urine Microscopic? YES; Bilirubin Urine Neg (Negative); Blood Urine 3+ (Negative); Glucose Urine UA 4+ (Normal); Ketones Urine 2+ (Negative); Leukocyte Esterase Urine Negative (Negative); Nitrate Urine Negative (Negative); Protein Urine 1+ (Negative); Urine Appearance Clear (CLEAR); Urine Color Yellow (Yellow); Urobilinogen Urine Norm (Negative); pH Urine 5 (5-7)
[2024-10-04 10:27] LABS: Amphetamines Screen Urine Negative (Negative); Barbiturates Screen Urine Negative (Negative); Benzodiazepines Screen Urine Negative (Negative); Cocaine Screen Urine Negative (Negative); Opiate Screen Urine Negative (Negative); PCP Screen Urine Negative (Negative); THC Screen Urine Positive (Negative)
[2024-10-04 10:40] LABS: Glucose Point of Care 273 mg/dL (70-110)
[2024-10-04 11:07] LABS: ABG PH Result 7.19 (7.35-7.45); Arterial Blood Gas Hematocrit 39.4 % (42-52); Base Excess ABG -19.6 mmol/L (-2.0-2.0); Blood Gas Allen Test Pos; Blood Gas Operator Identificat glc; Blood Gas Sample Site Radial, right; Blood Gas Sample Type Arterial; HCO3 ABG 6.5 mmol/L (22-26); Oxygen Device NC; PO2 ABG 88.8 mmHg (80.0-100.0); PO2 FiO2 Ratio Arterial Blood 317
[2024-10-04 11:12] LABS: Ketone (Acetest) Serum Negative (Negative)
[2024-10-04 11:19] LABS: Lactic Sepsis W/Reflex 19.2 mmol/L (0.5-2.2)
[2024-10-04 11:26] LABS: ABG PCO2 17.1 mmHg (35-45)
[2024-10-04] MEDS: iohexol 350 mg/mL 500 mL Btl (per mL) IV (11:52)
[2024-10-04] MEDS: levETIRAcetam 1,000 MG/100 ML PREMIX 400 MG IV (12:19)
--- NOTE | 2024-10-04 12:32 | PC.NURSE ---
RN informed pt removed IV, RN to bedside to start IV. While RN at bedside pt became unresponsive with blank pieter, ER called to room, Pt began having seizure. Jaw thrust preformed to open airway, oxygen applied to pt, OPA inserted by respiratory. Pt given 2 mg of Ativan IM per Dr. Alejo verbal order. PA to bedside. Seizure pads applied to bed. Pt awake, OPA removed. Pt was placed in soft wrist restraints at 10:05, verbal order from DEE Barboza. Pt circulation adequate and of normal color after placement of bilateral wrist restraints.
[2024-10-04 12:37] LABS: Reflex Lactate Order REFLEX LACTIC ORDERD
--- NOTE | 2024-10-04 12:55 | P.CONIM_ITS ---
Providers/Reason For Consult 2 Consulting Physician/Specialty*: dr. gomez general surgery Reason for Consult*: cholecystitis, gastric tumor Primary Care Provider: Tato Kay DO History of Present Illness History of Present Illness Efrain Ross is a 63 year old male decompensated cirrhotic whom surgery was consulted for CT scan findings of possible gastric mass and possible cholecystitis. No pericholecystic fluid. Medications/Allergies Home Medications ?Medication ?Instructions ?Recorded ?Confirmed ?Last Taken ?Type No Known Home Medications 10/04/2409/24 Unknown History Allergies Allergy/AdvReac Type Severity Reaction Status Date / Time No Known Allergies Allergy Verified 10/04/24 09:22 Current Medications Generic Name Dose Route Start Last Admin Trade Name Freq PRN Reason Stop Dose Admin Folic Acid 1 mg/ Multivitamins 1,011.2 mls @ 252.8 mls/hr 10/04/24 09:25 10/04/24 09:46 10 ml/ Thiamine HCl 100 mg/ IV 10/04/24 13:24 252.8 mls/hr Sodium Chloride ONCE ONE Administration PFSH Acute 2 PFSH: Medical History (Updated 10/04/24 @ 13:59 by Macey Alejo MD) Prostate disease Diabetes Family History Other Cancer Social History Smoking and tobacco/nicotine status: never used tobacco/nicotine Second hand smoke exposure: No Alcohol intake: never Substance/Drug Use: never Vitals/I&O/Wt Last Vital Signs Temp 97.4 F L 10/04/24 09:06 Pulse 107 H 10/04/24 09:06 Resp 24 H 10/04/24 09:06 BP 113/88 10/04/24 09:06 Pulse Ox 97 10/04/24 09:06 O2 Del Method Room Air 10/04/24 09:06 10/03/24 10/04/24 10/04/24 22:59 06:59 14:59 Intake Total 1100 / 1100 Balance 1100 / 1100 Weight last 48 hrs Weight 230 lb Physical Exam 2 Narrative: Tachycardic tachypneic abdomen distended Data 10/04/24 09:11 10/04/24 09:11 A&P Assessment and plan (1) Lactic acidosis: Plan 63 yo male decompensated cirrhosis. Consulted for lactic acidosis. CT scan findings are incidental and unlikely to be the cause of his lactic acidosis. If cholecystitis remains a concern consider IR cholecystostomy tube. EGD is low yield and can be done as outpatient. Recommend medical management of acutely decompensated cirrhosis. PDMP PDMP Reviewed: Not Reviewed Coding Level of Care Code 63214 Diagnoses Lactic acidosis E87.20
--- NOTE | 2024-10-04 12:55 | PM.MISC ---
Miscellaneous Note Note: Full consult note to follow. CT findings are incidental and unlikely to explain his elevated lactic acid. If gangrenous cholecystitis remains a concern recommend IR cholecystostomy tube. If patient gets admitted can consider EGD although it is low yield.
[2024-10-04] MEDS: etomidate 2 mg/mL INJ SDV 10 mL 20 MG IVP (13:30)
[2024-10-04] MEDS: succinylcholine 20 mg/mL SDV 10mL 100 MG IVP (13:31)
--- NOTE | 2024-10-04 13:41 | W.ED.AMS ---
Documented by User: Macey Alejo MD 10/04/24 14:40 HPI - Altered Mental Status General: Chief Complaint: Altered Mental Status Stated Complaint: gen illness - ams Time Seen by Provider: 10/04/24 09:07 History of Present Illness: 63-year-old man who presents emergency room with altered mental status. He has a history of alcohol abuse. He was initially evaluated by [facility]. Shortly after arrival he had a seizure. He was initially hypertensive and tachycardic. Thought that this might be alcoholic withdrawal seizure. No known history. His initial lactate was quite elevated which would indicate he is had a seizure prior to arrival. Related Data Home Medications ?Medication ?Instructions ?Recorded ?Confirmed No Known Home Medications 10/04/24 10/04/24 Allergies Allergy/AdvReac Type Severity Reaction Status Date / Time No Known Allergies Allergy Verified 10/04/24 09:22 Review of Systems General: Reports: ROS unobtainable due to medical condition [facility] ED PFSH: Medical History (Updated 10/04/24 @ 13:59 by Macey Alejo MD) Prostate disease Diabetes Family History Other Cancer Social History Smoking and tobacco/nicotine status: never used tobacco/nicotine Second hand smoke exposure: No Alcohol intake: never Substance/Drug Use: never Physical Exam Narrative: General: responds minimally to painful stimuli. I was called to patient room when he was having a seizure. Initially he was seizing and then became postictal. Skin: Warm, dry Head: Normocephalic, atraumatic. Neck: Supple, trachea midline. Eye: Extraocular movements are intact. Ears, nose, mouth and throat: Dry oral mucosa. He has bit his tongue. Cardiovascular: Regular rate and rhythm, Normal peripheral perfusion. Respiratory: Lungs are clear to auscultation, respirations are non-labored, breath sounds are equal, Symmetrical chest wall expansion. Gastrointestinal: Soft, Non distended, Normal bowel sounds. Musculoskeletal: no deformity. Neurological: Not Alert and oriented, No obvious focal neurological deficit observed. Psychiatric: unable to assess. Course Vital Signs: Vital signs: Vital Signs Temperature 97.4 F L 10/04/24 09:06 Pulse Rate 107 H 10/04/24 09:06 Respiratory Rate 40 H 10/04/24 13:53 Blood Pressure 113/88 10/04/24 09:06 Pulse Oximetry 97 10/04/24 09:06 Oxygen Delivery Me thod Room Air 10/04/24 09:06 Fraction of Inspir ed Oxygen 100 10/04/24 13:53 MDM - Altered Mental Status Medical Decision Making Medical decision making Lab Review: Laboratory results were reviewed and interpreted by myself the emergency room physician. No leukocytosis. No anemia. Platelets are quite low at 118. Sodium is low at 122. Mean and creatinine are normal at 10 and 0.7. Drug screen is negative. Alcohol level is elevated at 130. AST and ALT are elevated mildly at 97/47. Bilirubin is near normal at 1.2. I reviewed the patient's medical record. Reexamination: Patient continued to have worsening agitation and hypoxemia. So at this point it was decided to intubate. I discussed this with family and they agree. Endotracheal intubation Time: 1330 p.m. Confirmed: Patient, procedure, and site correct. Consent: , Emergent. Family. Indication: Respiratory failure. Procedural sedation: Succinylcholine and etomidate . Monitoring: Cardiac, blood pressure, continuous pulse oximetry. Preparation: Pre oxygenated, Inline stabilization of cervical spine maintained, Ensured proper cuff inflation. Technique: Oral intubation: A 8 ET tube was inserted, glydescope, visualized cords and ett passing through cords. . Placed at 23 cm at the teeth. Confirmation of tube placement: Bilateral chest rise, Positive color change indicated on end title CO2. Post procedure exam: Equal breath sounds. Complications: None. Performed by: Self. Total time: 10 minutes. This may be alcohol withdrawal type seizure, but given that he still has a blood alcohol level of 130 and was having seizures prior to this and we do not have neurology and now the patient has been intubated secondary to diminishing mental status and respiratory status seems best to have him sent to a tertiary care center. Also upon intubation he had black vomit that is concerning for an upper GI bleed. I have ordered some Protonix. I also gave him Keppra along with the Ativan if this is some other type of seizure. His head CT does not show any obvious lesions. There is some concern for gastric outlet obstruction on his CT scan. Assessment and plan: Alcohol dependence/abuse Seizure/possible alcohol withdrawal Lactic acidosis Metabolic encephalopathy Hypoxemic respiratory failure ?Patient received upwards of 7 to 8 mg of Ativan so far. 1 g IV Keppra. Unclear if this is alcohol withdrawal or some other cause for his seizures. ? Patient was intubated for worsening agitation and respiratory failure. ? This is a very complicated case, patient is appearing at this point and may be having some GI bleeding and multiple seizures that ultimately required intubation for like he needs sent to a tertiary care center -I discussed the patient with the accepting physician on-call. - Discussed findings and plan with patient. Answered any questions. - All laboratory values were reviewed and interpreted personally by myself, the ER physician - All imaging was reviewed and interpreted personally by myself, the ER physician. - Evaluation and treatment of this problem were appropriate in the emergency setting -I spent a total of >75 minutes of critical care time managing the patient, independent of any other practitioner. -The time involved in the performance of separately reportable procedures was not counted towards critical care time. Lab Data 10/04/24 09:11 10/04/24 09:11 Radiology Impressions Chest/Abdomen/Pelvis CT 10/04/24 10:19 IMPRESSION: Moderately distended gallbladder containing fluid and gas with possible mass or narrowing near the EG junction. Consider endoscopy. IMPRESSION: 1. Fluid distended stomach, consider gastric outlet obstruction. 2. Hepatomegaly with hepatic steatosis. COMMENTS: Consistent with the [place] [employer]'s Incidental Findings Committee white paper (J Am Mamadou Radiol 2018): Any incidental renal lesion less than 1 cm or classified as too small to characterize, or any incidental cystic renal lesion characterized as simple-appearing, is likely benign. No follow-up imaging is recommended for these lesions per consensus recommendations based on imaging criteria. Head CT 10/04/24 10:19 IMPRESSION: No acute intracranial abnormality. Chest X-Ray 10/04/24 14:09 IMPRESSION: 1. Enteric tube ending in the body of the stomach. 2. Infiltrate in the RIGHT upper lobe and atelectasis noted in the RIGHT lower lobe. Laboratory Results WBC 9.28 10^3/uL (3.29-11.43) 10/04/24 09:11 RBC 3.92 10^6/uL (3.85-5.65) 10/04/24 09:11 Hgb 13.10 g/dL (11.27-16.99) 10/04/24 09:11 Hct 37.6 % (37-53) 10/04/24 09:11 MCV 95.9 fl (82-101) 10/04/24 09:11 MCH 33.4 pg (27-33) H 10/04/24 09:11 MCHC 34.8 g/dL (30-55) 10/04/24 09:11 RDW 13.2 % (12.1-15.1) 10/04/24 09:11 Plt Count 118 10^3/cmm (157-399) L 10/04/24 09:11 MPV 10.3 fL (7.4-10.4) 10/04/24 09:11 Neut % (Auto) 70.3 % 10/04/24 09:11 Lymph % (Auto) 17.1 % 10/04/24 09:11 Stephens % (Auto) 9.2 % 10/04/24 09:11 Eos % (Auto) 2.4 % 10/04/24 09:11 Baso % (Auto) 0.2 % 10/04/24 09:11 Neut # (Auto) 6.53 10^3/uL (1.8-7.7) 10/04/24 09:11 Lymph # (Auto) 1.6 10^3/uL (0.8-4.8) 10/04/24 09:11 Stephens # (Auto) 0.9 10^3/uL (0.2-0.9) 10/04/24 09:11 Eos # (Auto) 0.2 10^3/uL (0.0-0.8) 10/04/24 09:11 Baso # (Auto) 0.0 10^3/uL (0.0-0.1) 10/04/24 09:11 Nucleated RBC % (auto) 0 % 10/04/24 09:11 Nucleated RBCs # 0.0 /100WBC 10/04/24 09:11 PT 15.00 SECONDS (12.1-14.9) H 10/04/24 10:45 INR 1.10 (0.8-1.2) 10/04/24 10:45 Specimen Type Arterial 10/04/24 10:55 Sample Site Radial, right 10/04/24 10:55 ABG pH 7.19 (7.35-7.45) L 10/04/24 10:55 ABG pCO2 17.1 mmHg (35-45) L* 10/04/24 10:55 ABG pO2 88.8 mmHg (80.0-100.0) 10/04/24 10:55 ABG PO2/FiO2 Ratio 317 10/04/24 10:55 ABG HCO3 6.5 mmol/L (22-26) L 10/04/24 10:55 ABG O2 Saturation 94.1 10/04/24 09:45 ABG Base Excess -19.6 mmol/L (-2.0-2.0) L 10/04/24 10:55 Vern Test Pos 10/04/24 10:55 A-a O2 Gradient 2.6 mmHg (5-10) L 10/04/24 09:45 Hematocrit 39.4 % (42-52) L 10/04/24 10:55 Hgb O2 Saturation 92.9 % (95-100) L 10/04/24 09:45 Carboxyhemoglobin 1.4 %THgb (0.4-20.1) 10/04/24 09:45 Methemoglobin < 0.0 % (0.4-1.5) L 10/04/24 09:45 Total Hemoglobin 12.9 g/dL (14-18) L 10/04/24 09:45 Sodium 119.0 mmol/L (131-143) L 10/04/24 09:45 Potassium 3.2 mmol/L (3.5-5.0) L 10/04/24 09:45 Glucose 253.0 mg/dL (70-115) H 10/04/24 09:45 Ionized Calcium 1.2 mmol/L (1.1-1.4) 10/04/24 09:45 O2 Delivery Device Nc 10/04/24 10:55 O2 Liters/Min 2.0 % 10/04/24 10:55 FiO2 28.0 % 10/04/24 10:55 Process Development Technician ID glc 10/04/24 10:55 Blood Gas Notified Time 91410/04/24 10:55 Sodium 122 mmol/L (136-145) L 10/04/24 09:11 Potassium 3.7 mmol/L (3.5-5.1) 10/04/24 09:11 Chloride 74 mmol/L (98-107) L 10/04/24 09:11 Carbon Dioxide 10 mmol/L (22-29) L 10/04/24 09:11 Anion Gap 41.7 (5-19) H 10/04/24 09:11 BUN 10 mg/dL (8-23) 10/04/24 09:11 Creatinine 0.7 mg/dL (0.7-1.2) 10/04/24 09:11 GFR Calculation 113.5 mL/min (90-130) 10/04/24 09:11 Glucose 260 mg/dL (65-115) H 10/04/24 09:11 POC Glucose 273 mg/dL (70-110) H 10/04/24 10:30 Calculated Osmolality 262 mOsm/kg (285-295) L 10/04/24 09:11 Lactic Acid Cancelled 10/04/24 13:48 Calcium 10.5 mg/dL (8.5-10.5) 10/04/24 09:11 Total Bilirubin 1.2 mg/dL (0.15-1.2) 10/04/24 09:11 GGT 761 U/L (8-61) H 10/04/24 09:11 AST 97 U/L (0-40) H 10/04/24 09:11 ALT 47 U/L (0-41) H 10/04/24 09:11 Alkaline Phosphatase 110 U/L (40-130) 10/04/24 09:11 Ammonia 53 umol/L (16-60) 10/04/24 13:48 Total Protein 7.7 g/dL (6.6-8.7) 10/04/24 09:11 Albumin 4.6 g/dL (3.5-5.2) 10/04/24 09:11 Globulin 3.1 g/dL (1.3-4.6) 10/04/24 09:11 Lipase 51 U/L (13-60) 10/04/24 09:11 Urine Color Yellow (Yellow) 10/04/24 10:05 Urine Appearance Clear (CLEAR) 10/04/24 10:05 Urine pH 5 (5-7) 10/04/24 10:05 Ur Specific [place] 1.020 (1.005-1.030) 10/04/24 10:05 Urine Protein 1+ (Negative) H 10/04/24 10:05 Urine Glucose (UA) 4+ (Normal) H 10/04/24 10:05 Urine Ketones 2+ (Negative) H 10/04/24 10:05 Urine Blood 3+ (Negative) H 10/04/24 10:05 Urine Nitrate Negative (Negative) 10/04/24 10:05 Urine Bilirubin Neg (Negative) 10/04/24 10:05 Urine Urobilinogen Norm mg/dL (Negative) 10/04/24 10:05 Ur Leukocyte Esterase Negative (Negative) 10/04/24 10:05 Urine RBC 0-2 /hpf (0-2) 10/04/24 10:05 Urine WBC 0-5 /hpf (0-5) 10/04/24 10:05 Ur Squamous Epith Cells 0-5 /hpf (0-5) 10/04/24 10:05 Amorphous Sediment Not Reportable 10/04/24 10:05 Urine Bacteria None seen /hpf (NONE) 10/04/24 10:05 Hyaline Casts 0-4 /lpf H 10/04/24 10:05 Urine Opiates Screen Negative ng/mL (Negative) 10/04/24 10:05 Ur Barbiturates Screen Negative ng/mL (Negative) 10/04/24 10:05 Ur Phencyclidine Scrn Negative ng/mL (Negative) 10/04/24 10:05 Ur Amphetamines Screen Negative ng/mL (Negative) 10/04/24 10:05 U Benzodiazepines Scrn Negative ng/mL (Negative) 10/04/24 10:05 Urine Cocaine Screen Negative ng/mL (Negative) 10/04/24 10:05 U Marijuana (THC) Screen Positive ng/mL (Negative) H 10/04/24 10:05 Ethyl Alcohol 130 mg/dL (0-10) H 10/04/24 09:11 Serum Ketones Negative (Negative) 10/04/24 10:45 All radiology interpretation(s) finalized by discharge Discharge Plan Discharge Patient Disposition: Xfer Short-Term Hosp Clinical Impression: Acute hyponatremia, Alcohol abuse, Seizure, Acute metabolic encephalopathy, Lactic acidosis Alcoholic intoxication Qualifiers: Complication of substance-induced condition: with delirium Qualified Code(s): F10.921 - Alcohol use, unspecified with intoxication delirium Condition: Stable Referrals: Tato Kay DO [Primary Care Provider] - Patient Instructions: Altered Mental Status (ED) Print Language: Turkish Coding Level of Care Code ED St[facility] for Moustapha Douglas Documented by User: Monica Branham PA-C 10/04/24 13:44 HPI - Altered Mental Status General: Chief Complaint: Altered Mental Status Stated Complaint: gen illness - ams Time Seen by Provider: 10/04/24 09:07 Related Data Home Medications ?Medication ?Instructions ?Recorded ?Confirmed No Known Home Medications 10/04/24 10/04/24 Allergies Allergy/AdvReac Type Severity Reaction Status Date / Time No Known Allergies Allergy Verified 10/04/24 09:22 [facility] ED PFSH: Medical History (Updated 10/04/24 @ 13:59 by Macey Alejo MD) Prostate disease Diabetes Family History Other Cancer Social History Smoking and tobacco/nicotine status: never used tobacco/nicotine Second hand smoke exposure: No Alcohol intake: never Substance/Drug Use: never Course Consultations: Consultation #1: Spoke with Dr. Sanchez at [facility] who accepts transfer. Time: 13:44 Vital Signs: Vital signs: Vital Signs Temperature 97.4 F L 10/04/24 09:06 Pulse Rate 107 H 10/04/24 09:06 Respiratory Rate 40 H 10/04/24 13:53 Blood Pressure 113/88 10/04/24 09:06 Pulse Oximetry 97 10/04/24 09:06 Oxygen Delivery Me thod Room Air 10/04/24 09:06 Fraction of Inspir ed Oxygen 100 10/04/24 13:53 MDM - Altered Mental Status Lab Data 10/04/24 09:11 10/04/24 09:11 Radiology Impressions Chest/Abdomen/Pelvis CT 10/04/24 10:19 IMPRESSION: Moderately distended gallbladder containing fluid and gas with possible mass or narrowing near the EG junction. Consider endoscopy. IMPRESSION: 1. Fluid distended stomach, consider gastric outlet obstruction. 2. Hepatomegaly with hepatic steatosis. COMMENTS: Consistent with the [place] [employer]'s Incidental Findings Committee white paper (J Am Mamadou Radiol 2018): Any incidental renal lesion less than 1 cm or classified as too small to characterize, or any incidental cystic renal lesion characterized as simple-appearing, is likely benign. No follow-up imaging is recommended for these lesions per consensus recommendations based on imaging criteria. Head CT 10/04/24 10:19 IMPRESSION: No acute intracranial abnormality. Chest X-Ray 10/04/24 14:09 IMPRESSION: 1. Enteric tube ending in the body of the stomach. 2. Infiltrate in the RIGHT upper lobe and atelectasis noted in the RIGHT lower lobe. Laboratory Results WBC 9.28 10^3/uL (3.29-11.43) 10/04/24 09:11 RBC 3.92 10^6/uL (3.85-5.65) 10/04/24 09:11 Hgb 13.10 g/dL (11.27-16.99) 10/04/24 09:11 Hct 37.6 % (37-53) 10/04/24 09:11 MCV 95.9 fl (82-101) 10/04/24 09:11 MCH 33.4 pg (27-33) H 10/04/24 09:11 MCHC 34.8 g/dL (30-55) 10/04/24 09:11 RDW 13.2 % (12.1-15.1) 10/04/24 09:11 Plt Count 118 10^3/cmm (157-399) L 10/04/24 09:11 MPV 10.3 fL (7.4-10.4) 10/04/24 09:11 Neut % (Auto) 70.3 % 10/04/24 09:11 Lymph % (Auto) 17.1 % 10/04/24 09:11 Stephens % (Auto) 9.2 % 10/04/24 09:11 Eos % (Auto) 2.4 % 10/04/24 09:11 Baso % (Auto) 0.2 % 10/04/24 09:11 Neut # (Auto) 6.53 10^3/uL (1.8-7.7) 10/04/24 09:11 Lymph # (Auto) 1.6 10^3/uL (0.8-4.8) 10/04/24 09:11 Stephens # (Auto) 0.9 10^3/uL (0.2-0.9) 10/04/24 09:11 Eos # (Auto) 0.2 10^3/uL (0.0-0.8) 10/04/24 09:11 Baso # (Auto) 0.0 10^3/uL (0.0-0.1) 10/04/24 09:11 Nucleated RBC % (auto) 0 % 10/04/24 09:11 Nucleated RBCs # 0.0 /100WBC 10/04/24 09:11 PT 15.00 SECONDS (12.1-14.9) H 10/04/24 10:45 INR 1.10 (0.8-1.2) 10/04/24 10:45 Specimen Type Arterial 10/04/24 10:55 Sample Site Radial, right 10/04/24 10:55 ABG pH 7.19 (7.35-7.45) L 10/04/24 10:55 ABG pCO2 17.1 mmHg (35-45) L* 10/04/24 10:55 ABG pO2 88.8 mmHg (80.0-100.0) 10/04/24 10:55 ABG PO2/FiO2 Ratio 317 10/04/24 10:55 ABG HCO3 6.5 mmol/L (22-26) L 10/04/24 10:55 ABG O2 Saturation 94.1 10/04/24 09:45 ABG Base Excess -19.6 mmol/L (-2.0-2.0) L 10/04/24 10:55 Vern Test Pos 10/04/24 10:55 A-a O2 Gradient 2.6 mmHg (5-10) L 10/04/24 09:45 Hematocrit 39.4 % (42-52) L 10/04/24 10:55 Hgb O2 Saturation 92.9 % (95-100) L 10/04/24 09:45 Carboxyhemoglobin 1.4 %THgb (0.4-20.1) 10/04/24 09:45 Methemoglobin < 0.0 % (0.4-1.5) L 10/04/24 09:45 Total Hemoglobin 12.9 g/dL (14-18) L 10/04/24 09:45 Sodium 119.0 mmol/L (131-143) L 10/04/24 09:45 Potassium 3.2 mmol/L (3.5-5.0) L 10/04/24 09:45 Glucose 253.0 mg/dL (70-115) H 10/04/24 09:45 Ionized Calcium 1.2 mmol/L (1.1-1.4) 10/04/24 09:45 O2 Delivery Device Nc 10/04/24 10:55 O2 Liters/Min 2.0 % 10/04/24 10:55 FiO2 28.0 % 10/04/24 10:55 Process Development Technician ID glc 10/04/24 10:55 Blood Gas Notified Time 91410/04/24 10:55 Sodium 122 mmol/L (136-145) L 10/04/24 09:11 Potassium 3.7 mmol/L (3.5-5.1) 10/04/24 09:11 Chloride 74 mmol/L (98-107) L 10/04/24 09:11 Carbon Dioxide 10 mmol/L (22-29) L 10/04/24 09:11 Anion Gap 41.7 (5-19) H 10/04/24 09:11 BUN 10 mg/dL (8-23) 10/04/24 09:11 Creatinine 0.7 mg/dL (0.7-1.2) 10/04/24 09:11 GFR Calculation 113.5 mL/min (90-130) 10/04/24 09:11 Glucose 260 mg/dL (65-115) H 10/04/24 09:11 POC Glucose 273 mg/dL (70-110) H 10/04/24 10:30 Calculated Osmolality 262 mOsm/kg (285-295) L 10/04/24 09:11 Lactic Acid Cancelled 10/04/24 13:48 Calcium 10.5 mg/dL (8.5-10.5) 10/04/24 09:11 Total Bilirubin 1.2 mg/dL (0.15-1.2) 10/04/24 09:11 GGT 761 U/L (8-61) H 10/04/24 09:11 AST 97 U/L (0-40) H 10/04/24 09:11 ALT 47 U/L (0-41) H 10/04/24 09:11 Alkaline Phosphatase 110 U/L (40-130) 10/04/24 09:11 Ammonia 53 umol/L (16-60) 10/04/24 13:48 Total Protein 7.7 g/dL (6.6-8.7) 10/04/24 09:11 Albumin 4.6 g/dL (3.5-5.2) 10/04/24 09:11 Globulin 3.1 g/dL (1.3-4.6) 10/04/24 09:11 Lipase 51 U/L (13-60) 10/04/24 09:11 Urine Color Yellow (Yellow) 10/04/24 10:05 Urine Appearance Clear (CLEAR) 10/04/24 10:05 Urine pH 5 (5-7) 10/04/24 10:05 Ur Specific [place] 1.020 (1.005-1.030) 10/04/24 10:05 Urine Protein 1+ (Negative) H 10/04/24 10:05 Urine Glucose (UA) 4+ (Normal) H 10/04/24 10:05 Urine Ketones 2+ (Negative) H 10/04/24 10:05 Urine Blood 3+ (Negative) H 10/04/24 10:05 Urine Nitrate Negative (Negative) 10/04/24 10:05 Urine Bilirubin Neg (Negative) 10/04/24 10:05 Urine Urobilinogen Norm mg/dL (Negative) 10/04/24 10:05 Ur Leukocyte Esterase Negative (Negative) 10/04/24 10:05 Urine RBC 0-2 /hpf (0-2) 10/04/24 10:05 Urine WBC 0-5 /hpf (0-5) 10/04/24 10:05 Ur Squamous Epith Cells 0-5 /hpf (0-5) 10/04/24 10:05 Amorphous Sediment Not Reportable 10/04/24 10:05 Urine Bacteria None seen /hpf (NONE) 10/04/24 10:05 Hyaline Casts 0-4 /lpf H 10/04/24 10:05 Urine Opiates Screen Negative ng/mL (Negative) 10/04/24 10:05 Ur Barbiturates Screen Negative ng/mL (Negative) 10/04/24 10:05 Ur Phencyclidine Scrn Negative ng/mL (Negative) 10/04/24 10:05 Ur Amphetamines Screen Negative ng/mL (Negative) 10/04/24 10:05 U Benzodiazepines Scrn Negative ng/mL (Negative) 10/04/24 10:05 Urine Cocaine Screen Negative ng/mL (Negative) 10/04/24 10:05 U Marijuana (THC) Screen Positive ng/mL (Negative) H 10/04/24 10:05 Ethyl Alcohol 130 mg/dL (0-10) H 10/04/24 09:11 Serum Ketones Negative (Negative) 10/04/24 10:45 Discharge Plan Discharge Patient Disposition: Xfer Short-Term Hosp Clinical Impression: Acute hyponatremia, Alcohol abuse, Seizure, Acute metabolic encephalopathy, Lactic acidosis Alcoholic intoxication Qualifiers: Complication of substance-induced condition: with delirium Qualified Code(s): F10.921 - Alcohol use, unspecified with intoxication delirium Condition: Stable Referrals: Tato Kay DO [Primary Care Provider] - Patient Instructions: Altered Mental Status (ED) Print Language: Turkish Coding Level of Care Code ED Stitch Burnisher for Moustapha Douglas
[2024-10-04] MEDS: midazolam hcl 100 MG/100 ML BAG IV (13:44)
[2024-10-04] MEDS: pantoprazole 40 mg SDV 80 MG IVP (13:54)
[2024-10-04] MEDS: propofol 1,000 MG/100 ML INJ 6.26 MG IV (14:09)
--- NOTE | 2024-10-04 14:09 | XR_ITS ---
NOTE: Report was unsigned for reason: Ordering provider was edited. Original Signature date and time was: 10/04/24 @1429 WS: [id number] Exam: XR chest 1V portable [id number] Date/Time of Exam: 10/04/2024 2:10 PM Reason For Exam: TUBE PL Compared to the previous exam performed on the same day at 10:17 a.m. An enteric tube extends into the stomach. There is infiltrate in the RIGHT upper lobe as well as atelectasis and infiltrate in the RIGHT lower lobe. No pneumothorax or pleural effusion. Heart size top limits normal. Bony structures are intact. Numerous monitoring leads superimpose the chest. [facility] XR/XR chest 1V portable [id number] IMPRESSION: 1. Enteric tube ending in the body of the stomach. 2. Infiltrate in the RIGHT upper lobe and atelectasis noted in the RIGHT lower lobe.
[2024-10-04 14:25] LABS: Ammonia 53 umol/L (16-60)
[2024-10-04 14:55] LABS: Lactic Acid level (Lactate) 9.6 mmol/L (0.5-2.2)
[2024-10-04 16:14] LABS: Estmated Average Glucose 180; Hemoglobin A1C 7.9 % (4.0-6.0)
== END 2024-10-04 14:45 | disposition short-term general hospital (02) ==
PROVIDERS: Internal Medicine; Physician Assistant; Emergency Provider Emergency Medicine; PCP Family Medicine
DX: E87.1 Hypo-osmolality and hyponatremia (principal); R56.9 Unspecified convulsions; G93.41 Metabolic encephalopathy; E87.20 Acidosis, unspecified; F10.121 Alcohol abuse with intoxication delirium; Y90.6 Blood alcohol level of 120-199 mg/100 ml
CPT/HCPCS: 36415; 36416; 36600; 51702; 70450; 71045; 71275; 74177; 80051; 80053; 80306; 80307; 81001; 82009; 82140; 82330; 82803; 82805; 82962; 82977; 83036; 83605; 83690; 85025; 85610; 87040; 94799; 96365; 96372; 96375; 96376; 99285; J0330; J1953; J2060; J2250; J2470; J2704; J3411; J3490; J7030; J9999